=== PATIENT | female | born 1940 | race African-American/Black ===

== ENCOUNTER 2025-04-13 15:20 | Emergency (ER) | payer BC ==
[~2025-04-13] VITALS: Ht 160 cm; Wt 69.0 kg
[2025-04-13 15:36] VITALS: O2SAT 100
[2025-04-13 21:19] LABS: CLARITY URINE CLEAR (CLEAR); COLOR URINE DARK YELLOW (YELLOW); GLUCOSE URINE NEGATIVE (NEGATIVE); KETONES URINE 1+ (NEGATIVE); LEUKOCYTE ESTERASE URINE NEGATIVE (NEGATIVE); NITRITE URINE NEGATIVE (NEGATIVE); OCCULT BLOOD URINE NEGATIVE (NEGATIVE); PH URINE 5.5 (4.5-8.0); PROTEIN URINE 3+ (NEGATIVE); SPECIFIC GRAVITY URINE 1.026 (1.005-1.030); UROBILINOGEN URINE 1.0 E.U./dL (0.2-1.0)
[2025-04-13] MEDS: LIDOCAINE 5% PATCH TOP SCH (21:56)
[2025-04-13] MEDS: ACETAMINOPHEN 325MG TABLET PO ONE (21:56)
[2025-04-13] MEDS ORDERED: LIDO-53 TP (21:57)
[2025-04-13 22:15] VITALS: BP 163/97; PULSE 66; RESP 16; TEMP 36.7; O2SAT 97
[2025-04-13 22:50] LABS: BACTERIA URINE 1+; RBC URINE 0-2 /hpf (0-2); SQUAMOUS EPITHELIAL CELL URINE 1+ /lpf (RARE/1+)
[2025-04-13 22:51] LABS: WBC URINE 0-2 /hpf (0-2)
== END 2025-04-13 22:18 | disposition home or self-care (01) ==
LOC: ER 15:20
DX: M79.18 Myalgia, other site (principal); I10 Essential (primary) hypertension; Z88.5 Allergy status to narcotic agent
CPT/HCPCS: 81003; 99284